=== PATIENT | male | born 1950 | race Caucasian/White ===

== ENCOUNTER 2017-01-19 07:04 | Day surgery (SDC) | payer MEDICARE, BC ==
[~2017-01-19 07:04] MED LIST: Bupivacaine 0.5%/EPINEPHrine 1:200,000 30 ML SDV ONE; Lactated Ringers 1,000 ML IV SCH; Propofol 200 MG/20 ML SDV ONE; Sodium Chloride 0.9% 5 ML Syringe FLUSH PRN; ceFAZolin 1 GM Vial ONE; fentaNYL 100 MCG/2 ML SDV ONE
[2017-01-19] MEDS ORDERED: Lactated Ringers 1,000 ML ONE (07:48)
[2017-01-19] MEDS ORDERED: ceFAZolin 1 GM Vial IVPUSH ONE (08:16)
[2017-01-19] MEDS ORDERED: Rocuronium 50 MG/5 ML Vial IV ONE (08:16)
[2017-01-19] MEDS ORDERED: Glycopyrrolate 0.2 MG/ML 5 ML MDV IVPUSH ONE (08:16)
[2017-01-19] MEDS ORDERED: Propofol 200 MG/20 ML SDV IV ONE (08:16)
[2017-01-19] MEDS ORDERED: Neostigmine Methylsulfate 10 MG/10 ML MDV IVPUSH ONE (08:16)
[2017-01-19] MEDS ORDERED: Succinylcholine 200 MG/10 ML MDV IV ONE (08:16)
[2017-01-19] MEDS ORDERED: fentaNYL 100 MCG/2 ML SDV IVPUSH ONE (08:16)
[2017-01-19] MEDS ORDERED: Atropine 0.4 MG/ML SDV IVPUSH ONE (08:16)
[2017-01-19] MEDS ORDERED: Ondansetron 4 MG/2 ML SDV IVPUSH ONE (08:16)
[2017-01-19] MEDS ORDERED: ceFAZolin 1 GM Vial ONE (08:45)
[2017-01-19] MEDS ORDERED: Bupivacaine 0.5%/EPINEPHrine 1:200,000 30 ML SDV INJECT ONE ×2 (08:45)
[2017-01-19] MEDS ORDERED: Sodium Chloride 0.9% 20 ML SDV ONE (08:45)
--- NOTE | 2017-01-19 10:06 | PCM.OPNOTE ---
[id number] herniorrhaphy and partial omentectomy Findings: large ventral hernia was noted. Contents were mostly omental fat. Omentectomy was performed. Repair of the hernia was performed. Marlex mesh was also placed for additional support. Pre Op Diagnosis: Moderately large ventral abdominal hernia, symptomatic. Post-Op Diagnosis: As above. Anesthesia Technique: General ET Tube Primary Surgeon: Anel Mendenhall Drain/Tube Comments:: 15.5 cm 1/4 inch Matt drain was placed in the subcutaneous tissue. Condition: Good Free Text/Narrative:: Preoperative diagnosis: Moderately enlarged symptomatic ventral abdomen hernia. postop diagnosis: As above Procedure performed: Ventral abdominal herniorrhaphy and repair with Marlex mesh. Partial omentectomy. Informed consent was obtained the patient regarding this procedure. All possible complications were thoroughly discussed with the patient. These include infection, bleeding, pain, persistence of the hernia, recurrence of the hernia, and other unknown complications. Despite his consultations the patient decided to proceed. Anesthetic complications were handled by the transition social worker. The patient was taken to the operative room and kept in the supine position. A general anesthesia was administered by the transition social worker. His abdomen was thoroughly prepped and draped in usual fashion. vertical incision was made directly on top of the ventral hernia. Subcutaneous dissection was performed until we came upon the hernia. The hernia was dissected free from its defect. The peritoneum was opened. Contents were mostly omental tissue. Partial- omentectomy was performed. The rest of the contents was placed back into the abdomen. The defect was closed with one nylon suture. The defect was further fortified by placing a Marlex mesh and sewing it in place using one nylon. The wound was thoroughly irrigated. Small bleeders were cauterized. Hemostasis was maintained meticulously. The subcutaneous tissue was approximated using 4-0 Polysorb. A 1/4 inch Matt drain 15.5 cm was placed and brought out through the inferior end of the incision. The skin was closed with Steri-Strip clips. Approximately 10 cc of Marcaine was placed in the muscle and subcutaneous layer to prevent postoperative pain. Blood loss was negligible. Intraoperative complications were nil. Sponge needle and instrument count were correct. The patient was transferred to the recovery room in an excellent condition.
[2017-01-19] MEDS ORDERED: fentaNYL 100 MCG/2 ML SDV ONE (10:30)
[2017-01-19 15:37] VITALS: BP 114/78
== END 2017-01-19 13:35 | disposition home or self-care (01) ==
LOC: KA.SDS 07:04
PROVIDERS: ATTEND Family Medicine
PROC: 0WUF0JZ Supplement Abdominal Wall with Synthetic Substitute, Open Approach (ICD-10-PCS; principal; 2017-01-19)
DX: K43.9 Ventral hernia without obstruction or gangrene (principal); F32.9 Major depressive disorder, single episode, unspecified; I10 Essential (primary) hypertension; E78.5 Hyperlipidemia, unspecified; Z79.82 Long term (current) use of aspirin; Z79.899 Other long term (current) drug therapy
CPT/HCPCS: 49560; 49568; C1781; J0330; J0461; J0690; J2405; J2704; J2710; J3010; J7120; 00832; 88302; J3490